=== PATIENT | female | born 1980 | race Caucasian/White ===

== ENCOUNTER → 2022-10-03 12:34 | Outpatient (CLI) | payer OTHER, SELFPAY ==
--- NOTE | 2022-10-03 | DI.MRI.S_ITS ---
BREAST MRI OF BOTH BREASTS: 10/03/2022 CLINICAL: Screening for Breast Cancer. Comparison is made to exams dated: 08/21/2022 mammogram, 04/13/2021 mammogram, and 02/23/2020 mammogram - [facility]. PROCEDURE: MR BREAST BI WO/W CON INDICATIONS: Screening for breast cancer TECHNIQUE: The patient was placed prone in a dedicated breast imaging coil. Precontrast axial STIR and 3D FLASH without fat saturation sequences were obtained. Both before and after bolus injection of contrast, sequential 1-minute axial 3D FLASH with fat saturation sequences for 3 time points, with subtraction images and maximum intensity projections (MIP's) generated. Delayed sagittal FLASH images with fat saturation were also obtained. Computer-aided detection, including computer algorithm analysis of MRI image data for lesion detection and characterization, pharmacokinetic analysis, with further physician review for interpretation, was performed. FINDINGS: Image quality: Minimal motion artifact There is moderate background parenchymal enhancement. Right breast: 9 o'clock position of the right breast, posterior depth, 3 cm from nipple, there is a 6 x 6 x 3 mm oval circumscribed mass with reassuring high T2 signal. No other suspicious mass, non-mass enhancement, or focus identified. Left breast: No suspicious mass, non-mass enhancement, or focus. Miscellaneous: Bilateral breast implants are present. No suspicious adenopathy identified in the axilla. IMPRESSION: INCOMPLETE: NEEDS ADDITIONAL IMAGING EVALUATION There is an oval circumscribed 6 x 6 x 3 mm mass with reassuring high T2 signal at the 9 o'clock position right breast, posterior depth 3 cm from nipple. A second-look ultrasound is recommended. Please see reference images 03/02, , . No suspicious findings in the left breast. BIRADS 0 COMMENT: The imaging literature indicates that a negative contrast breast MRI examination has a high sensitivity and a moderate specificity for detecting and excluding invasive carcinomas to a detection threshold of 3-5 mm; nonetheless, appropriate clinical and mammographic follow-up are recommended. MRI is not sensitive for detecting DCIS (ductal carcinoma in situ) and may not detect large invasive neoplasms that show only minimal enhancement such as mucinous carcinoma. If there are suspicious calcifications or clinically worrisome palpable masses, then biopsy should still be considered. Invasive neoplasms can be hidden by co-existent and benign enhancement caused by mastitis, hormone therapy effects, radiation therapy, , and recent biopsy or surgery. False positive examinations can occur in a number of circumstances, including breasts that have recently been subject to invasive procedures and those that contain atypical ductal hyperplasia, hormonally stimulated glandular tissue, fat necrosis, or radial scars. This exam was interpreted at Station ID: [id number]. Electronically Signed By: Tamir Stone M.D. lc/:10/03/2022 14:19:31 letter sent: Additional Imaging Needed ACR BI-RADS Category 0: Incomplete [id number]
== END ==
PROVIDERS: PCP Physician Assistant; Referring Provider Physician Assistant; Visit Provider Physician Assistant
DX: Z12.39 Encounter for other screening for malignant neoplasm of breast (principal); N63.15 Unspecified lump in the right breast, overlapping quadrants; Z98.82 Breast implant status
CPT/HCPCS: 77049; A9579

== ENCOUNTER → 2022-10-15 10:07 | Outpatient (CLI) | payer OTHER, SELFPAY ==
--- NOTE | 2022-10-15 | DI.US.S_ITS ---
LIMITED ULTRASOUND OF RIGHT BREAST: 10/15/2022 CLINICAL: Patient returns today to evaluate a focal asymmetry in the right breast on recent MRI. Comparison is made to exams dated: 10/03/2022 breast MRI - [facility], 08/21/2022 mammogram, 04/13/2021 mammogram, 02/23/2020 mammogram, and 09/18/2018 mammogram - [facility]. Color flow and real-time ultrasound of the right breast 9 o'clock region were performed. Saleem scale images of the real-time examination were reviewed. There is a 0.8 cm x 0.6 cm x 0.2 cm oval cyst in the right breast at 10 o'clock anterior depth 3 cm from the nipple. This oval cyst is hypoechoic with a well-defined boundary and posterior acoustic enhancement. This correlates with breast MRI findings but was not seen on the prior mammogram. Color flow imaging demonstrates that there is no vascularity present. IMPRESSION: PROBABLY BENIGN The 0.8 cm circumscribed cyst in the right breast is consistent with a complicated cyst and is probably benign. Fibroadenoma is also a consideration. A follow-up ultrasound in 6 months is recommended to demonstrate stability. Exam findings were conveyed to the patient. This exam was interpreted at Station ID: [id number]. Electronically Signed By: Robert Wells M.D. slc/:10/15/2022 12:02:27 letter sent: Followup Recommended Ultrasound BI-RADS: 3 Probably benign
== END ==
PROVIDERS: PCP Physician Assistant; Referring Provider Physician Assistant; Visit Provider Physician Assistant
DX: R92.8 Other abnormal and inconclusive findings on diagnostic imaging of breast (principal); N60.01 Solitary cyst of right breast
CPT/HCPCS: 76642